=== PATIENT | female | born 1945 | race Caucasian/White ===

== ENCOUNTER → 2016-02-23 | Outpatient (CLI) | payer OTHER ==
[~2016-02-23] MED LIST: ATENOLOL25 MG PO; COUMADIN3 MG PO; COUMADIN5 MG PO; DULCOLAX5 MG PO; FUROSEMIDE80 MG PO; LASIX80 MG PO; LEVETIRACETAM250 MG PO; LEVOTHYROXINE200 MC1 PO; LEVOTHYROXINE25 MCG PO; MELOXICAM15 MG PO; MELOXICAM7.5 MG PO; OXYCODONE HCL5 MG PO; PAIN & FEVER500 MG PO; PANTOPRAZOLE SO40 MG PO; PERCOCET 5/31 TABLET PO; POTASSIUM CHLO20 ME2 PO; PROTONIX40 MG PO; SYNTHROID25 MCG PO; TOPAMAX100 MG PO; TOPIRAMATE25 MG PO; WARFARIN SODIUM5 MG PO; ZOCOR40 MG PO
== END | disposition home or self-care (01) ==
LOC: EEG 10:00
DX: R56.9 Unspecified convulsions (principal)
CPT/HCPCS: 95819

== ENCOUNTER 2016-06-01 12:43 | Inpatient (IN) | payer OTHER ==
[~2016-06-01] VITALS: Ht 157.5 cm; Wt 119.4 kg
[2016-06-01 13:28] LABS: EOSINOPHIL (%) 0 % (0-5); HEMATOCRIT 38.8 % (36.0-46.0); IMMATURE GRANULOCYTE (%) 0.4 % (0.0-0.7); IMMATURE GRANULOCYTE COUNT 0.1 K/uL; INSTRUMENT ABS NEUTROPHIL CT 14.3 K/uL; LYMPHOCYTE COUNT 0.7 K/uL (1.0-2.8); MCH 28.5 PG (29.0-34.0); MCHC 31.2 G/DL (30.0-36.0); MCV 91.3 FL (83-99); MEAN PLAT.VOLUME 9.7 uM^3 (9.5-12.4); MONOCYTE (%) 3.6 % (3-12); MONOCYTE COUNT 0.6 K/uL (0-0.8); NEUTROPHIL (%) 91.2 % (45-76); NEUTROPHIL COUNT 14.3 K/uL (1.8-6.4); PLATELET COUNT 238 K/uL (156-360); RBC DIS.WIDTH-SD 50.6 % (39-53); RED BLOOD COUNT 4.25 M/uL (3.80-5.20)
[2016-06-01 13:31] LABS: WHITE BLOOD COUNT 15.7 K/uL (4.1-10.2)
[2016-06-01 13:36] LABS: CHLORIDE 108 mEq/L (99-109); POTASSIUM 3.7 mEq/L (3.7-5.4); SODIUM 139 mEq/L (136-147)
[2016-06-01 13:38] LABS: GLUCOSE 119 mg/dL (70-99); INTER. NORMALIZED RATIO 1.9; PROTHROMBIN TIME 19.6 (9.2-11.2); PTT 41.7 (25-32)
[2016-06-01 13:39] LABS: ANION GAP 10 MEQ/L (2-14)
[2016-06-01 13:42] LABS: GFR ESTIMATE (CALCULATED) 58 mL/min/
[2016-06-01 13:43] LABS: UREA NITROGEN (BUN) 21 mg/dL (9-23)
[2016-06-01 13:44] LABS: CREATINE KINASE 726 IU/L (1-294); TOTAL CK 726 IU/L (1-294)
[2016-06-01 13:50] LABS: TROP-I INTERPRETATION NEGATIVE; TROPONIN-I < 0.01 ng/mL (0.0-0.30)
[2016-06-01 13:51] LABS: CK-MB 4.1 ng/mL (0.0-4.9)
[2016-06-01 15:18] LABS: ADD MIUA? YES; BILIRUBIN NEGATIVE; BLOOD MODERATE; COLOR YELLOW ((YELLOW)); GLUCOSE (STRIP) NEGATIVE; KETONES 5; LEUKOCYTES NEGATIVE; NITRITE NEGATIVE; PROTEIN (STRIP) 30; SPECIFIC GRAVITY 1.038 (1.000-1.030); UROBILINOGEN 0.2 MG/DL (0.2-1.0)
[2016-06-01 15:30] LABS: BACTERIA RARE /HPF; CALCIUM OXALATE CRYSTALS 1+ /HPF; EPITHELIAL CELLS NONE SEEN /HPF; HYALINE CASTS 0-5 /LPF; MUCUS 1+ /LPF; UCUL ADDED? NO; WHITE BLOOD CELLS 0-5 /HPF (0-5)
[2016-06-01] MEDS ORDERED: TRILEPTAL150 MG PO (16:18)
[2016-06-01] MEDS ORDERED: SYNTHROID50 MCG PO (16:18)
[2016-06-01] MEDS ORDERED: NEURONTIN300 MG PO (16:18)
[2016-06-01] MEDS ORDERED: VITAMIN D-32000 UNI2 PO (16:19)
[2016-06-01] MEDS ORDERED: COUMADIN6 MG PO (16:20)
[2016-06-01] MEDS ORDERED: COUMADIN1 MG PO (16:20)
[2016-06-01] MEDS ORDERED: TYLENOL EXTRA500 MG PO (16:21)
[2016-06-01 19:18] VITALS: BP 119/57
[2016-06-01 23:23] VITALS: BP 124/59
[2016-06-02 03:33] VITALS: BP 126/66
[2016-06-02 07:04] VITALS: BP 137/65
[2016-06-02 07:29] LABS: ANION GAP 9 MEQ/L (2-14); CHLORIDE 110 MEQ/L (99-109); CREATINE KINASE 426 IU/L (1-294); GFR ESTIMATE (CALCULATED) > 59 mL/min/; GLUCOSE 92 mg/dL (70-99); POTASSIUM 3.8 MEQ/L (3.7-5.4); SAMPLE HEMOLYSIS CHECK 0; SAMPLE ICTERIC CHECK 0; SAMPLE LIPEMIA CHECK 0; SODIUM 140 MEQ/L (136-147); TOTAL BILIRUBIN 0.4 MG/DL (0.0-1.0); UREA NITROGEN (BUN) 16 mg/dL (9-23)
[2016-06-02 07:31] LABS: ALKALINE PHOSPHATASE 80 IU/L (3-129)
[2016-06-02 12:01] VITALS: BP 125/62
[2016-06-02 16:02] LABS: INTER. NORMALIZED RATIO 1.3; PROTHROMBIN TIME 13.3 (9.2-11.2)
[2016-06-02 16:15] VITALS: BP 135/60
[2016-06-02 19:19] VITALS: BP 137/68
[2016-06-02 23:27] VITALS: BP 127/55
[2016-06-03 03:40] VITALS: BP 122/63
[2016-06-03 06:56] LABS: INTER. NORMALIZED RATIO 1.2; PROTHROMBIN TIME 12.4 (9.2-11.2)
[2016-06-03 07:02] LABS: HEMATOCRIT 34.5 % (36.0-46.0); MCHC 30.4 G/DL (30.0-36.0); MEAN PLAT.VOLUME 9.8 uM^3 (9.5-12.4); PLATELET COUNT 184 K/uL (156-360); RBC DIS.WIDTH-CV 15.3 % (11.8-14.6); RBC DIS.WIDTH-SD 53.3 % (39-53); RED BLOOD COUNT 3.62 M/uL (3.80-5.20)
[2016-06-03 07:07] LABS: MCV 95.3 FL (83-99)
[2016-06-03 07:14] LABS: ALKALINE PHOSPHATASE 75 IU/L (3-129); ANION GAP 7 MEQ/L (2-14); CHLORIDE 112 MEQ/L (99-109); GFR ESTIMATE (CALCULATED) > 59 mL/min/; GLUCOSE 93 mg/dL (70-99); POTASSIUM 4.5 MEQ/L (3.7-5.4); SAMPLE HEMOLYSIS CHECK 0; SAMPLE ICTERIC CHECK 0; SAMPLE LIPEMIA CHECK 0; SODIUM 141 MEQ/L (136-147); TOTAL BILIRUBIN 0.4 MG/DL (0.0-1.0); UREA NITROGEN (BUN) 13 mg/dL (9-23)
[2016-06-03 08:00] VITALS: BP 133/71
[2016-06-03 16:00] VITALS: BP 128/70
[2016-06-04] VITALS: BP 144/75
[2016-06-04 08:03] LABS: INTER. NORMALIZED RATIO 1.3
[2016-06-04 08:42] VITALS: BP 115/67
[2016-06-04 16:17] VITALS: BP 126/56
[2016-06-04 23:33] VITALS: BP 123/64
[2016-06-05 07:50] VITALS: BP 134/71
[2016-06-05 08:14] LABS: INTER. NORMALIZED RATIO 1.4; PROTHROMBIN TIME 14.7 (9.2-11.2)
== END 2016-06-05 11:41 | DRG 603 ==
LOC: EME 12:43 → 2EAST 16:42 → EDOF 16:42 → 2EAST 18:53
PROVIDERS: Emergency Medicine; Internal Medicine
DX: L03.116 Cellulitis of left lower limb (principal); M62.82 Rhabdomyolysis; Z68.42 Body mass index [BMI] 45.0-49.9, adult; E66.01 Morbid (severe) obesity due to excess calories; I87.2 Venous insufficiency (chronic) (peripheral); R26.2 Difficulty in walking, not elsewhere classified; Z86.711 Personal history of pulmonary embolism; W19.XXXA Unspecified fall, initial encounter; D32.0 Benign neoplasm of cerebral meninges; G40.909 Epilepsy, unspecified, not intractable, without status epilepticus; Z86.718 Personal history of other venous thrombosis and embolism; Z87.891 Personal history of nicotine dependence; I10 Essential (primary) hypertension; K21.9 Gastro-esophageal reflux disease without esophagitis; E78.5 Hyperlipidemia, unspecified
CPT/HCPCS: 70450; 71010; 80048; 80053; 81003; 82550; 82553; 84484; 85025; 85027; 85610; 85730; 87040; 93005; 99281; 99285; J0696; J2543; J7050